=== PATIENT | female | born 1995 | race Caucasian/White ===

== ENCOUNTER 2019-03-27 06:13 | Inpatient (IN) ==
[2019-03-27 07:48] LABS: Apearance,Urine Clear (Clear); Protein,Urine Negative; Urine Color Straw (Yellow)
[2019-03-27 07:49] LABS: Bilirubin,Urine Negative (Negative); Blood, Urine Negative (Negative); Glucose,Urine (UA) Negative (Negative); Ketones,Urine Negative (Negative); Nitrite,Urine Negative (Negative); RBC,Urine Rare /HPF (0-4); Squamous Epithelial Cell,Urine Rare /HPF (0-10); Urine Urobilinogen < 2.0 EU/DL (0.2-1.0)
[2019-03-27 07:50] LABS: Amorphous Crystals,Urine Few /HPF (Few); Bacteria,Urine Rare /HPF (Few)
[2019-03-27] MEDS ORDERED: ONDANSETRON 4 MG/2 ML VIAL IV PRN (11:43)
[2019-03-27] MEDS ORDERED: BUTORPHANOL 1 MG/ML VIAL IV PRN (11:43)
[2019-03-27] MEDS ORDERED: BUTORPHANOL 2 MG/ML VIAL IV PRN (11:43)
[2019-03-27] MEDS: LACTATED RINGERS 1,000 ML IV SCH ×4 (11:50→19:15)
[2019-03-27] MEDS ORDERED: OXYTOCIN/LR 20 UNIT/1,000 ML BAG IV SCH (12:00)
[2019-03-27 12:04] LABS: Basophils # 0.1 10*3/uL (0.0-0.2); Basophils % 0.3 % (0.0-0.8); Eosinophils % 0.1 % (0.00-10.9); Hematocrit 37.5 VOL% (35.7-47.0); Immature Granulocytes % 0.8 %; Immature Granulocytes Absolute 0.12 #; Lymphocytes # 1.8 10*3/uL (1.4-4.0); Lymphocytes % 11.4 % (21.3-54.2); Mean Corpuscular Volume 83.5 FL (87-102); Mean Platelet Volume 11.8 FL (9.6-12.0); Monocytes % 3.8 % (1.7-12.7); Neutrophils % 83.6 % (38.7-73.9); Platelet Count 240 T/CUMM (130-400); Red Blood Count 4.49 MC/CUMM (3.8-5.5); Red Cell Distribution Width 13.1 % (9.3-17.3); White Blood Count 15.9 T/CUMM (4-12)
[2019-03-27] MEDS ORDERED: ePHEDrine 50 MG/ML AMP IV PRN (12:14)
[2019-03-27] MEDS ORDERED: diphenhydrAMINE 50 MG/1 ML VIAL IV PRN ×2 (12:14)
[2019-03-27] MEDS ORDERED: NALOXONE 0.4 MG/ML VIAL IV PRN (12:14)
[2019-03-27] MEDS ORDERED: hydrOXYzine HCL 25 MG/1 ML VIAL IM PRN (12:14)
[2019-03-27] MEDS ORDERED: PROMETHAZINE 25 MG/1 ML VIAL IM ONE (12:14)
[2019-03-27] MEDS ORDERED: FAMOTIDINE 20 MG/2 ML VIAL IV ONE (12:21)
[2019-03-27] MEDS ORDERED: CITRIC ACID/SODIUM CITRATE 30 ML UDCUP PO ONE (12:21)
[2019-03-27] MEDS ORDERED: CITRIC ACID/SODIUM CITRATE 30 ML UDCUP ONE (12:22)
[2019-03-27] MEDS ORDERED: fentaNYL 2 MCG/ROPIV 0.2% EPID 100 ML EPIDURAL SCH (12:30)
[2019-03-27 12:33] LABS: Albumin 2.9 G/DL (3.4-5.0); Bilirubin,Total 0.4 MG/DL (0.2-1.0); Calcium 8.8 MG/DL (8.5-10.1); Total Protein 6.7 G/DL (6.4-8.3)
[2019-03-27] MEDS ORDERED: AMPICILLIN INJ 2,000 MG in SODIUM CHLORIDE 0.9% 100 ML IV ONE (13:41)
[2019-03-27 14:58] LABS: Apearance,Urine CLEAR (Clear); Bilirubin,Urine Negative (Negative); Blood, Urine Negative (Negative); Glucose,Urine (UA) Negative (Negative); Ketones,Urine Negative (Negative); Mucus,Urine Few /LPF (Occasional); Nitrite,Urine Negative (Negative); Protein,Urine Negative; RBC,Urine <1 /HPF (0-4); Squamous Epithelial Cell,Urine Occasional /HPF (0-10); Urine Color Yellow (Yellow); Urine Specific Gravity 1.017 (1.001-1.035); Urine Urobilinogen < 2.0 EU/DL (0.2-1.0); WBC,Urine 4 /HPF (0-6)
[2019-03-27] MEDS ORDERED: AMPICILLIN INJ 1,000 MG in SODIUM CHLORIDE 0.9% 100 ML IV SCH (18:00)
[2019-03-27] MEDS ORDERED: MAGNESIUM HYDROXIDE SUSP 30 ML UDCUP PO PRN (20:20)
[2019-03-27] MEDS ORDERED: ACETAMINOPHEN 325 MG TABLET PO PRN (20:20)
[2019-03-27] MEDS ORDERED: BISACODYL 10 MG SUPP RECTAL PRN (20:20)
[2019-03-27] MEDS ORDERED: LACTATED RINGERS 1,000 ML IV SCH (20:30)
[2019-03-27] MEDS ORDERED: BENZOCAINE 20%/MENTHOL 0.5% SPRAY 56 GM CAN TOP PRN (23:29)
[2019-03-27] MEDS ORDERED: OXYTOCIN/LR 20 UNIT/1,000 ML BAG IV ONE (23:29)
[2019-03-27] MEDS: DOCUSATE SODIUM 100 MG CAPSULE PO SCH ×2 (23:41→23:49)
[2019-03-27] MEDS: KETOROLAC 15 MG/1 ML VIAL IV SCH (23:41)
[2019-03-28] MEDS: KETOROLAC 15 MG/1 ML VIAL IV SCH ×2 (05:35→14:54)
[2019-03-28 05:38] LABS: Basophils # 0.1 10*3/uL (0.0-0.2); Basophils % 0.3 % (0.0-0.8); Eosinophils % 0.1 % (0.00-10.9); Hematocrit 34.6 VOL% (35.7-47.0); Hemoglobin 10.9 GM/DL (12.0-16.0); Immature Granulocytes % 0.9 %; Immature Granulocytes Absolute 0.17 #; Lymphocytes # 2.3 10*3/uL (1.4-4.0); Lymphocytes % 11.8 % (21.3-54.2); Mean Corpuscular HGB Conc 31.5 GM/DL (32-36); Mean Platelet Volume 12.1 FL (9.6-12.0); Monocytes % 6.1 % (1.7-12.7); Neutrophils % 80.8 % (38.7-73.9); Platelet Count 201 T/CUMM (130-400); Red Blood Count 4.07 MC/CUMM (3.8-5.5); Red Cell Distribution Width 13.2 % (9.3-17.3); White Blood Count 19.3 T/CUMM (4-12)
[2019-03-28] MEDS: DOCUSATE SODIUM 100 MG/10 ML UDCUP PO SCH ×2 (10:15→21:13)
[2019-03-29] MEDS ORDERED: IBUPROFEN 800 MG TABLET PO PRN (04:00)
[2019-03-29 07:22] VITALS: BP 115/71
[2019-03-29] MEDS: DOCUSATE SODIUM 100 MG/10 ML UDCUP PO SCH (09:51)
[2019-03-29] MEDS ORDERED: DIPH/TET/ACEL PERT BOOSTER VACCINE 0.5 ML VIAL IM ONE (10:44)
[2019-03-29] MEDS: KETOROLAC 15 MG/1 ML VIAL IV SCH (14:07)
== END 2019-03-29 13:45 | disposition home or self-care (01) | DRG 560 ==
LOC: N.LDOUT 06:13 → N.LD 07:48 → N.OB 23:00
PROVIDERS: ADMIT Obstetrics & Gynecology; ATTEND Obstetrics & Gynecology